=== PATIENT | male | born 2005 | race Hispanic/Latino ===

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

== ENCOUNTER 2023-04-29 20:27 | Emergency (ER) | payer SELFPAY ==
[~2023-04-29] VITALS: Ht 182.9 cm; Wt 74.0 kg
[2023-04-29 20:33] VITALS: BP 147/92
[2023-04-29 21:03] VITALS: BP 103/85
[2023-04-29 21:30] VITALS: BP 114/63
[2023-04-29 22:20] VITALS: BP 110/60
== END 2023-04-29 22:20 | disposition home or self-care (01) | DRG 563 ==
LOC: ED 20:27
DX: S62.235A Other nondisplaced fracture of base of first metacarpal bone, left hand, initial encounter for closed fracture (principal); W23.0XXA Caught, crushed, jammed, or pinched between moving objects, initial encounter; Y92.89 Other specified places as the place of occurrence of the external cause; Y99.0 Civilian activity done for income or pay